=== PATIENT | male | born 1950 | race Caucasian/White ===

== ENCOUNTER 2021-03-01 15:58 | Inpatient (IN) | payer MEDICARE ==
[~2021-03-01] VITALS: Ht 188 cm; Wt 131.5 kg
[2021-03-02 13:00] VITALS: BP 110/75
[2021-03-02] MEDS ORDERED: DiphenhydrAMINE/ZINC ACET 30 GM CREAM TP PRN ×2 (13:00→21:00)
[2021-03-02] MEDS ORDERED: LACTULOSE 20 GM/30 ML SOLUTION UDCUP PO PRN (13:00)
[2021-03-02] MEDS ORDERED: SODIUM CHLORIDE 0.65% 44 ML NASAL SPRAY NASAL PRN (13:00)
[2021-03-02] MEDS ORDERED: MIDODRINE HCL 5 MG TABLET PO PRN (13:00)
[2021-03-02] MEDS ORDERED: DiphenhydrAMINE HCL 25 MG CAPSULE PO PRN (17:00)
[2021-03-02] MEDS ORDERED: MAGNESIUM HYDROXIDE SUSPENSION 30 ML UDCUP PO PRN (17:15)
[2021-03-02 17:38] VITALS: BP 93/54
[2021-03-02] MEDS: VITAMIN B COMP/VIT C/FOLIC ACID CAPSULE PO SCH (19:17)
[2021-03-02] MEDS: SEVELAMER CARBONATE 800 MG TABLET PO SCH (19:17)
[2021-03-02] MEDS: CARBAMIDE PEROXIDE 6.5% 15 ML OTIC SOLUTION AU SCH ×2 (21:00→21:24)
[2021-03-02] MEDS: ATENOLOL 25 MG TABLET PO SCH ×2 (21:00→21:24)
[2021-03-02 21:19] VITALS: BP 102/69
[2021-03-02] MEDS: MELATONIN 3 MG TABLET PO SCH (21:21)
[2021-03-02] MEDS: DOCUSATE SODIUM 100 MG CAPSULE PO SCH (21:21)
[2021-03-02] MEDS: PANTOPRAZOLE SODIUM 40 MG DR TABLET PO SCH (21:21)
[2021-03-02] MEDS: APIXABAN 5 MG TABLET PO SCH (21:21)
[2021-03-02] MEDS: DICLOFENAC SODIUM 1% 100 GM GEL [2GM] TP SCH (21:24)
[2021-03-02] MEDS: FLUOCINONIDE 0.05% 15 GM CREAM TP SCH (21:25)
[2021-03-02] MEDS: CHLORHEXIDINE GLUCONATE 0.12% 15 ML UDCUP ORAL RINSE PO SCH (21:25)
[2021-03-02 21:31] VITALS: BP 95/62
[2021-03-03 00:29] VITALS: BP 109/54
[2021-03-03] MEDS: ACETAMINOPHEN 325 MG TABLET PO PRN (00:29)
[2021-03-03 01:44] LABS: APPEARANCE,URINE TURBID (CLEAR)
[2021-03-03 02:13] LABS: RBC,URINE >100 /HPF (0-2); WBC,URINE >100 /HPF (0-5)
[2021-03-03 02:14] LABS: BACTERIA,URINE Many /HPF (None Seen)
[2021-03-03 07:04] LABS: BASOPHILS % (AUTO) 1.2 % (0.0-2.0); EOSINOPHILS % (AUTO) 12.4 % (1.0-6.0); HEMATOCRIT 24.9 % (41-53); HEMOGLOBIN 7.9 g/dL (13.5-17.5); LYMPHOCYTES # (AUTO) 0.9 K/uL (1.0-4.8); LYMPHOCYTES % (AUTO) 8.3 % (22.0-44.0); MEAN CORPUSCULAR HEMOGLOBIN 29.7 pg (26.0-34.0); MEAN CORPUSCULAR HGB CONC 31.7 G/dL (31.0-37.0); MEAN CORPUSCULAR VOLUME 94 fL (80-100); MONOCYTES % (AUTO) 9.8 % (2.0-9.0); NEUTROPHILS # (AUTO) 7.2 K/uL (1.8-7.7); NEUTROPHILS % (AUTO) 68.3 % (40.0-70.0); PLATELET COUNT (AUTO) 152 K/uL (150-450); RED BLOOD CELL COUNT(AUTO) 2.66 MIL/uL (4.50-5.90); RED CELL DISTRIBUTION WIDTH 20.7 % (11.5-14.5)
[2021-03-03 07:21] LABS: ALBUMIN 3.3 g/dL (3.4-5.0); BILIRUBIN,TOTAL 0.6 mg/dL (0.1-1.0); CREATININE 6.57 mg/dL (0.60-1.30); MAGNESIUM 2.8 mg/dL (1.80-2.40); PHOSPHORUS 6.2 mg/dL (2.5-4.9); POTASSIUM 5.3 mmol/L (3.5-5.1); TOTAL PROTEIN, SERUM 7.1 g/dL (6.4-8.2)
[2021-03-03 08:00] VITALS: BP 105/72
[2021-03-03] MEDS: DICLOFENAC SODIUM 1% 100 GM GEL [2GM] TP SCH ×2 (08:30→21:16)
[2021-03-03] MEDS: DOCUSATE SODIUM 100 MG CAPSULE PO SCH ×3 (08:30→21:16)
[2021-03-03] MEDS: VITAMIN B COMP/VIT C/FOLIC ACID CAPSULE PO SCH (08:30)
[2021-03-03] MEDS: SEVELAMER CARBONATE 800 MG TABLET PO SCH ×3 (08:31→17:32)
[2021-03-03] MEDS: POLYETHYLENE GLYCOL 3350 17 GM PACKET PO SCH (08:32)
[2021-03-03] MEDS: APIXABAN 5 MG TABLET PO SCH ×3 (08:32→21:16)
[2021-03-03] MEDS: CHLORHEXIDINE GLUCONATE 0.12% 15 ML UDCUP ORAL RINSE PO SCH ×3 (08:32→21:16)
[2021-03-03] MEDS: ATENOLOL 25 MG TABLET PO SCH (08:32)
[2021-03-03] MEDS: CARBAMIDE PEROXIDE 6.5% 15 ML OTIC SOLUTION AU SCH ×2 (08:44→21:00)
[2021-03-03] MEDS ORDERED: SODIUM ZIRCONIUM CYCLOSILICATE 5 GM POWDER PACKET PO ONE (08:45)
[2021-03-03] MEDS ORDERED: CETIRIZINE HCL 10 MG TABLET PO SCH (09:00)
[2021-03-03] MEDS: FLUOCINONIDE 0.05% 15 GM CREAM TP SCH ×3 (10:32→21:17)
[2021-03-03] MEDS ORDERED: SODIUM CHLORIDE 0.9% IRRIG BTL 1,000 ML IRRIG ONE (10:48)
[2021-03-03 15:03] VITALS: BP 104/72
[2021-03-03] MEDS ORDERED: 0.9% SODIUM CHLORIDE 1,000 ML BAG ONE (16:26)
[2021-03-03] MEDS ORDERED: EPINEPHrine 1:10,000 [1 MG/10 ML] SYRINGE ONE (16:26)
[2021-03-03] MEDS: IPRATROPIUM BROMIDE 0.5 MG/2.5 ML NEB SOLUTION NEB PRN (17:14)
[2021-03-03] MEDS: PANTOPRAZOLE SODIUM 40 MG DR TABLET PO SCH ×2 (21:00→21:16)
[2021-03-03] MEDS: MELATONIN 3 MG TABLET PO SCH ×2 (21:00→21:16)
[2021-03-04 00:08] VITALS: BP 90/49
[2021-03-04] MEDS ORDERED: 0.9% SODIUM CHLORIDE 5 ML NEB SOLUTION NEB ONE (01:38)
[2021-03-04] MEDS: IPRATROPIUM BROMIDE 0.5 MG/2.5 ML NEB SOLUTION NEB PRN ×3 (01:40→13:08)
[2021-03-04 08:20] VITALS: BP 90/65
[2021-03-04 08:21] LABS: BASOPHILS % (AUTO) 0.8 % (0.0-2.0); EOSINOPHILS % (AUTO) 13.2 % (1.0-6.0); HEMATOCRIT 23.7 % (41-53); HEMOGLOBIN 7.6 g/dL (13.5-17.5); LYMPHOCYTES # (AUTO) 0.8 K/uL (1.0-4.8); LYMPHOCYTES % (AUTO) 9.1 % (22.0-44.0); MEAN CORPUSCULAR HEMOGLOBIN 29.9 pg (26.0-34.0); MEAN CORPUSCULAR HGB CONC 32.1 G/dL (31.0-37.0); MEAN CORPUSCULAR VOLUME 93 fL (80-100); MONOCYTES # (AUTO) 0.6 K/uL (0.1-1.0); MONOCYTES % (AUTO) 6.8 % (2.0-9.0); NEUTROPHILS # (AUTO) 6.2 K/uL (1.8-7.7); NEUTROPHILS % (AUTO) 70.1 % (40.0-70.0); PLATELET COUNT (AUTO) 137 K/uL (150-450); RED BLOOD CELL COUNT(AUTO) 2.55 MIL/uL (4.50-5.90); RED CELL DISTRIBUTION WIDTH 19.8 % (11.5-14.5)
[2021-03-04 08:39] LABS: CALCIUM, TOTAL 9.8 mg/dL (8.8-10.5); CREATININE 8.04 mg/dL (0.60-1.30)
[2021-03-04] MEDS: DICLOFENAC SODIUM 1% 100 GM GEL [2GM] TP SCH ×2 (08:44→19:43)
[2021-03-04] MEDS: DOCUSATE SODIUM 100 MG CAPSULE PO SCH ×2 (08:45→19:42)
[2021-03-04] MEDS: SEVELAMER CARBONATE 800 MG TABLET PO SCH ×3 (08:45→17:00)
[2021-03-04] MEDS: POLYETHYLENE GLYCOL 3350 17 GM PACKET PO SCH (08:45)
[2021-03-04] MEDS: VITAMIN B COMP/VIT C/FOLIC ACID CAPSULE PO SCH (08:45)
[2021-03-04] MEDS: CHLORHEXIDINE GLUCONATE 0.12% 15 ML UDCUP ORAL RINSE PO SCH ×2 (08:45→19:48)
[2021-03-04] MEDS: ATENOLOL 25 MG TABLET PO SCH (08:59)
[2021-03-04] MEDS: CARBAMIDE PEROXIDE 6.5% 15 ML OTIC SOLUTION AU SCH ×2 (09:00→19:48)
[2021-03-04] MEDS ORDERED: EPOETIN ALFA 10,000 UNITS/ML VIAL SQ SCH (09:00)
[2021-03-04] MEDS: FLUOCINONIDE 0.05% 15 GM CREAM TP SCH ×3 (09:00→19:48)
[2021-03-04] MEDS: PredniSONE 20 MG TABLET PO SCH (10:44)
[2021-03-04] MEDS ORDERED: SODIUM CHLORIDE 0.9% 2,000 ML ONE (14:15)
[2021-03-04 16:20] VITALS: BP 115/85
[2021-03-04] MEDS ORDERED: IPRATROPIUM BROMIDE 0.5 MG/2.5 ML NEB SOLUTION NEB PRN (17:15)
[2021-03-04] MEDS: PANTOPRAZOLE SODIUM 40 MG DR TABLET PO SCH (19:42)
[2021-03-04] MEDS: MIRTAZAPINE 15 MG TABLET PO SCH (19:42)
[2021-03-04] MEDS: MELATONIN 3 MG TABLET PO SCH ×2 (19:48→22:35)
[2021-03-04] MEDS ORDERED: SODIUM CL IRRIG SOLN BOTTLE 250 ML IRRIG ONE (23:12)
[2021-03-04 23:40] VITALS: BP 115/76
[2021-03-04] MEDS: IPRATROPIUM BROMIDE 0.5 MG/2.5 ML NEB SOLUTION NEB SCH (23:44)
[2021-03-05] VITALS: BP 115/76
[2021-03-05] MEDS: ACETAMINOPHEN 325 MG TABLET PO PRN ×3 (03:13→20:18)
[2021-03-05 04:13] VITALS: BP 126/78
[2021-03-05 06:52] LABS: EOSINOPHILS % (AUTO) 1.4 % (1.0-6.0); HEMOGLOBIN 7.7 g/dL (13.5-17.5); LYMPHOCYTES # (AUTO) 0.7 K/uL (1.0-4.8); LYMPHOCYTES % (AUTO) 8.5 % (22.0-44.0); MEAN CORPUSCULAR HGB CONC 32.1 G/dL (31.0-37.0); MEAN CORPUSCULAR VOLUME 94 fL (80-100); MONOCYTES # (AUTO) 0.8 K/uL (0.1-1.0); MONOCYTES % (AUTO) 9.9 % (2.0-9.0); NEUTROPHILS # (AUTO) 6.2 K/uL (1.8-7.7); NEUTROPHILS % (AUTO) 79.2 % (40.0-70.0); PLATELET COUNT (AUTO) 138 K/uL (150-450); RED BLOOD CELL COUNT(AUTO) 2.57 MIL/uL (4.50-5.90); RED CELL DISTRIBUTION WIDTH 20.1 % (11.5-14.5)
[2021-03-05] MEDS: IPRATROPIUM BROMIDE 0.5 MG/2.5 ML NEB SOLUTION NEB SCH ×3 (07:12→20:06)
[2021-03-05] MEDS: SEVELAMER CARBONATE 800 MG TABLET PO SCH ×3 (08:39→17:33)
[2021-03-05] MEDS: VITAMIN B COMP/VIT C/FOLIC ACID CAPSULE PO SCH (08:39)
[2021-03-05] MEDS: PredniSONE 20 MG TABLET PO SCH (08:40)
[2021-03-05] MEDS: ATENOLOL 25 MG TABLET PO SCH (08:41)
[2021-03-05] MEDS: DICLOFENAC SODIUM 1% 100 GM GEL [2GM] TP SCH ×2 (08:42→20:07)
[2021-03-05] MEDS: DOCUSATE SODIUM 100 MG CAPSULE PO SCH ×2 (08:42→20:01)
[2021-03-05] MEDS: CARBAMIDE PEROXIDE 6.5% 15 ML OTIC SOLUTION AU SCH ×2 (08:44→20:07)
[2021-03-05] MEDS: POLYETHYLENE GLYCOL 3350 17 GM PACKET PO SCH (08:44)
[2021-03-05] MEDS: CHLORHEXIDINE GLUCONATE 0.12% 15 ML UDCUP ORAL RINSE PO SCH ×2 (08:44→20:07)
[2021-03-05 09:00] VITALS: BP 120/91
[2021-03-05] MEDS: FLUOCINONIDE 0.05% 15 GM CREAM TP SCH ×3 (09:30→20:07)
[2021-03-05] MEDS: QUEtiapine FUMARATE 25 MG TABLET PO SCH ×4 (09:35→21:58)
[2021-03-05] MEDS ORDERED: BARIUM SULFATE 0.1% SUSPENSION 450 ML BOTTLE ONE (11:26)
[2021-03-05] MEDS ORDERED: SODIUM CHLORIDE 0.9% 100 ML ONE (14:12)
[2021-03-05] MEDS ORDERED: IOHEXOL 350 MG/ML 100 ML VIAL ONE (14:12)
[2021-03-05 16:15] VITALS: BP 125/76
[2021-03-05] MEDS ORDERED: SODIUM CL IRRIG SOLN BOTTLE 250 ML IRRIG ONE (19:40)
[2021-03-05] MEDS: PANTOPRAZOLE SODIUM 40 MG DR TABLET PO SCH (20:01)
[2021-03-05] MEDS: MIRTAZAPINE 15 MG TABLET PO SCH (20:01)
[2021-03-05] MEDS: MELATONIN 3 MG TABLET PO SCH (20:06)
[2021-03-06 00:12] VITALS: BP 144/83
[2021-03-06 05:20] VITALS: BP 62/29
[2021-03-06 05:40] VITALS: BP 64/34
[2021-03-06 05:44] VITALS: BP 62/29
[2021-03-06 05:53] VITALS: BP 85/64
[2021-03-06 05:55] VITALS: BP 96/53
[2021-03-06 06:21] LABS: GLUCOMETER DEV NAME(LOC) 2WR.1C; GLUCOSE,POINT OF CARE 189 MG/DL (70-110)
[2021-03-06 07:23] LABS: BASOPHILS % (AUTO) 0.1 % (0.0-2.0); EOSINOPHILS % (AUTO) 0.6 % (1.0-6.0); HEMATOCRIT 28.5 % (41-53); HEMOGLOBIN 8.5 g/dL (13.5-17.5); LYMPHOCYTES # (AUTO) 0.6 K/uL (1.0-4.8); LYMPHOCYTES % (AUTO) 3.4 % (22.0-44.0); MEAN CORPUSCULAR HEMOGLOBIN 29.4 pg (26.0-34.0); MEAN CORPUSCULAR HGB CONC 29.9 G/dL (31.0-37.0); MEAN CORPUSCULAR VOLUME 98 fL (80-100); MONOCYTES # (AUTO) 2.1 K/uL (0.1-1.0); MONOCYTES % (AUTO) 12.6 % (2.0-9.0); NEUTROPHILS # (AUTO) 14.1 K/uL (1.8-7.7); NEUTROPHILS % (AUTO) 83.3 % (40.0-70.0); PLATELET COUNT (AUTO) 243 K/uL (150-450); RED BLOOD CELL COUNT(AUTO) 2.89 MIL/uL (4.50-5.90); RED CELL DISTRIBUTION WIDTH 20.3 % (11.5-14.5)
[2021-03-06 07:32] LABS: CALCIUM, TOTAL 9.7 mg/dL (8.8-10.5); CREATININE 7.43 mg/dL (0.60-1.30); POTASSIUM 5.6 mmol/L (3.5-5.1)
[2021-03-06 07:38] LABS: ALBUMIN 3.3 g/dL (3.4-5.0); BILIRUBIN,TOTAL 0.4 mg/dL (0.1-1.0); TOTAL PROTEIN, SERUM 7.1 g/dL (6.4-8.2)
[2021-03-08 14:19] LABS: GLUCOSE,POINT OF CARE 125 MG/DL (70-110)
== END 2021-03-06 05:55 | disposition short-term general hospital (02) | DRG 947 ==
LOC: 2WR 03-02 12:25
PROVIDERS: ADMIT Physical Medicine & Rehabilitation; ATTEND Physical Medicine & Rehabilitation
DX: R53.81 Other malaise (principal); N18.6 End stage renal disease; J96.01 Acute respiratory failure with hypoxia; I48.20 Chronic atrial fibrillation, unspecified; I13.2 Hypertensive heart and chronic kidney disease with heart failure and with stage 5 chronic kidney disease, or end stage renal disease; I50.32 Chronic diastolic (congestive) heart failure; E44.0 Moderate protein-calorie malnutrition; E87.5 Hyperkalemia; F41.1 Generalized anxiety disorder; E66.01 Morbid (severe) obesity due to excess calories; R31.0 Gross hematuria; L30.9 Dermatitis, unspecified; F32.9 Major depressive disorder, single episode, unspecified; D63.8 Anemia in other chronic diseases classified elsewhere; J44.9 Chronic obstructive pulmonary disease, unspecified; Z86.16 Personal history of COVID-19; Z87.01 Personal history of pneumonia (recurrent); Z93.1 Gastrostomy status; Z99.2 Dependence on renal dialysis; Z99.81 Dependence on supplemental oxygen; Z79.01 Long term (current) use of anticoagulants; Z68.37 Body mass index [BMI] 37.0-37.9, adult; R26.9 Unspecified abnormalities of gait and mobility
CPT/HCPCS: 71045; 71046; 71275; 74177; 76770; 80048; 80053; 81001; 82962; 83735; 84100; 85025; 87077; 87081; 87086; 87186; 87340; 92507; 92522; 92950; 93970; 94002; 94640; 97110; 97116; 97163; 97167; 97530; 97535; A9575; J0171; J0885; J7030; J7050; 36415-L1; 36415-TC